=== PATIENT | female | born 1960 | race Two or more races ===

== ENCOUNTER 2023-10-19 11:55 | Emergency (ER) | payer OTHER ==
[~2023-10-19] VITALS: Ht 152.4 cm; Wt 54.4 kg
[~2023-10-19 11:55] MED LIST: CATAFLAM50 MG
[2023-10-19 15:40] LABS: HEMATOCRIT 39.1 % (36.0-45.00); HEMOGLOBIN 13.3 g/dL (12.0-15.00); MEAN CELL VOLUME 93.6 fL (80.00-100.00); MEAN CORPUSCULAR HEMOGLOBIN 31.9 pg (27.00-32.0); MEAN CORPUSCULAR HGB CONC 34.1 g/dl (32.0-36.0); PLATELET COUNT 304 K/uL (150-450); RED BLOOD COUNT 4.18 M/uL (4.00-6.00); RED CELL DISTRIBUTION WIDTH 12.8 % (11.5-14.5)
== END 2023-10-19 16:14 | disposition home or self-care (01) ==
LOC: ER 11:57
PROVIDERS: General Practice
DX: K62.5 Hemorrhage of anus and rectum (principal); Z91.013 Allergy to seafood